=== PATIENT | female | born 1980 | race Caucasian/White ===

== ENCOUNTER 2017-10-13 05:42 | Emergency (ER) | payer SELFPAY ==
[~2017-10-13] VITALS: Ht 162.6 cm; Wt 97.7 kg
[~2017-10-13 05:42] MED LIST: ABILIFY; AMBIEN 10MG10 MG PO; AMBIEN 5MG TABLE5 MG; AMBIEN 5MG TABLE5 MG PO; ANTABUSE500 MG PO; ATARAX25 MG PO; ATIVAN 1MG T1 MG/TAB PO; B-1100 MG PO; BIRTH CONTROL PILLS; CARAFATE 1GM1 G PO; DESYREL 100MG100 MG PO; DESYREL 50MG50 MG; FLEXERIL10 MG PO; FLEXERIL5 MG PO; FOLIC ACID 11 MG/TA1 PO; INDERAL 10MG10 MG PO; K-TAB20 PO; KLONOPIN 0.5MG0.5 MG PO; KLONOPIN 1MG1 MG PO; KLONOPIN WAFER0.5 MG PO; LAMICTAL 100MG100 MG PO; LAMICTAL 25MG T25 MG; MAALOX PLUS 3030 ML PO; MULTI VITAMINS1 TAB PO; NO HOME MEDICATIONS; NORCO 325 MG-101 TAB PO; NORCO 325 MG-51 TAB PO; NORVASC 5MG5 MG/TAB PO; PAXIL 20MG20 MG PO; PERCOCET 325 MG1 TA2 PO; PHENERGAN 25 TA25 MG PO; PREDNISONE10 MG PO; PRIL40 PO; PRILOSEC 20MG20 MG PO; PROZAC 20MG20 MG PO; PROZAC40 MG PO; PROZAC60 MG PO; THERA1 TA1 PO; THIAMINE 1100 MG/TAB PO; VALIUM 10MG10 MG/TAB PO; VALIUM 2MG T2 MG/TAB PO; VALIUM 5MG T5 MG/TAB PO; ZOFRAN 4MG T4 MG/TAB PO; ZOFRAN ODT8 MG PO
[2017-10-13 05:46] VITALS: TEMP 98.4
[2017-10-13] MEDS ORDERED: PRIL40 PO (05:50)
[2017-10-13 06:28] LABS: BASO % 0.2 % (0.0-2.0); EOS # 0.2 (0.0-0.7); EOS % 1.9 % (0-4.0); GRAN # 9.1 (1.4-6.5); GRAN % 71.5 % (42.2-75.2); HEMATOCRIT 38.5 % (37.0-47.0); HEMOGLOBIN 13.5 g/dl (12.5-16.0); LYMPH # 2.5 (1.2-3.4); LYMPH % 19.8 % (20.0-51.0); MEAN CELL VOLUME 83 fl (80.0-100.0); MEAN CORPUSCULAR HEMOGLOBIN 29 pg (27.0-31.0); MEAN CORPUSCULAR HGB CONC 35 g/dl (33.0-37.0); MEAN PLATELET VOLUME 10.6 fl (7.4-10.4); MONO # 0.8 (0.1-0.6); MONO % 6.3 % (1.7-9.3); PLATELET COUNT 223 K/mm3 (130-400); RED BLOOD COUNT 4.65 M/mm3 (4.10-5.30); REDCELL DISTRIBUTION WIDTH-CV 12.8 % (11.5-14.5)
[2017-10-13 06:37] LABS: ALBUMIN 3.8 gm/dL (3.5-5.0); BILIRUBIN,TOTAL 0.4 mg/dL (0.0-1.0); CALCIUM 9.2 mg/dL (8.4-10.2); CREATININE, serum 0.63 mg/dL (0.52-1.25); POTASSIUM 3.6 mmol/L (3.4-5.0); TOTAL PROTEIN 6.9 gm/dL (6.4-8.2)
[2017-10-13 07:30] LABS: COLLECTION METHOD CLEAN CATCH
[2017-10-13 07:38] LABS: MUCOUS Present /lpf; PH 7 (5-8); URINE APPEARANCE Clear; URINE BACTERIA None Seen /hpf; URINE BILIRUBIN Negative (NEGATIVE); URINE BLOOD Negative (NEGATIVE); URINE COLOR Yellow; URINE GLUCOSE Negative (NEGATIVE); URINE KETONE Negative (NEGATIVE); URINE LEUKOCYTE ESTERASE Negative (NEGATIVE); URINE NITRATE Negative (NEGATIVE); URINE PROTEIN(semi-quant) 1+ (NEGATIVE); URINE UROBILINOGEN Negative (NEGATIVE)
[2017-10-13] MEDS ORDERED: PHENERGAN 25 TA25 MG PO (08:25)
[2017-10-13] MEDS ORDERED: NORCO 325 MG-51 TAB PO (08:25)
[2017-10-13 08:47] VITALS: BP 120/89; PULSE 77
== END 2017-10-13 09:00 | disposition home or self-care (01) ==
LOC: COL.ER 05:42
PROVIDERS: Emergency Medicine
DX: R10.12 Left upper quadrant pain (principal); K21.9 Gastro-esophageal reflux disease without esophagitis; F43.10 Post-traumatic stress disorder, unspecified; F17.210 Nicotine dependence, cigarettes, uncomplicated; Z87.19 Personal history of other diseases of the digestive system; Z90.49 Acquired absence of other specified parts of digestive tract
CPT/HCPCS: J1170; J2765; J3010; J7030; Q9967

== ENCOUNTER 2017-11-10 15:23 | Emergency (ER) | payer SELFPAY ==
[~2017-11-10] VITALS: Ht 162.6 cm; Wt 95.5 kg
[2017-11-10 15:26] VITALS: TEMP 98.8
[2017-11-10 15:38] LABS: COLLECTION METHOD CLEAN CATCH
[2017-11-10 15:47] LABS: MUCOUS Present /lpf; PH 5 (5-8); URINE APPEARANCE Hazy; URINE BACTERIA Rare /hpf; URINE BILIRUBIN Negative (NEGATIVE); URINE BLOOD Negative (NEGATIVE); URINE COLOR Yellow; URINE GLUCOSE Negative (NEGATIVE); URINE KETONE Negative (NEGATIVE); URINE LEUKOCYTE ESTERASE Trace (NEGATIVE); URINE NITRATE Negative (NEGATIVE); URINE PROTEIN(semi-quant) Negative (NEGATIVE); URINE RBC 0-2 /hpf; URINE UROBILINOGEN Negative (NEGATIVE)
[2017-11-10 16:15] LABS: BASO # 0.1 (0.0-0.2); BASO % 0.6 % (0.0-2.0); EOS # 0.2 (0.0-0.7); EOS % 2.6 % (0-4.0); HEMATOCRIT 37.5 % (37.0-47.0); HEMOGLOBIN 12.9 g/dl (12.5-16.0); LYMPH % 45.1 % (20.0-51.0); MEAN CELL VOLUME 83 fl (80.0-100.0); MEAN CORPUSCULAR HEMOGLOBIN 29 pg (27.0-31.0); MEAN CORPUSCULAR HGB CONC 34 g/dl (33.0-37.0); MEAN PLATELET VOLUME 10.3 fl (7.4-10.4); MONO # 0.6 (0.1-0.6); MONO % 6.5 % (1.7-9.3); PLATELET COUNT 241 K/mm3 (130-400); REDCELL DISTRIBUTION WIDTH-CV 13.1 % (11.5-14.5)
[2017-11-10 16:28] LABS: ALANINE AMINOTRANSFERASE 25 U/L (9-52); ALBUMIN 4.3 gm/dL (3.5-5.0); ALKALINE PHOSPHATASE 62 U/L (50-136); ANION GAP 10 mmol/L (7-16); AST,SGOT 19 U/L (15-37); BILIRUBIN,TOTAL 0.3 mg/dL (0.0-1.0); BLOOD UREA NITROGEN 18 mg/dL (7-17); CALCIUM 9.1 mg/dL (8.4-10.2); CARBON DIOXIDE 23 mmol/L (22-30); CHLORIDE 105 mmol/L (98-107); CREATININE, serum 0.66 mg/dL (0.52-1.25); GLUCOSE 86 mg/dL (74-106); LIPASE 30 U/L (23-300); POTASSIUM 3.6 mmol/L (3.4-5.0); SODIUM 138 mmol/L (137-145); TOTAL PROTEIN 7.2 gm/dL (6.4-8.2)
[2017-11-10 16:33] LABS: C-REACTIVE PROTEIN < 0.5 mg/dL (0.0-0.9)
[2017-11-10] MEDS ORDERED: ZOFRAN 4MG T4 MG/TAB PO (16:55)
[2017-11-10] MEDS ORDERED: NORCO 325 MG-51 TAB PO (16:55)
[2017-11-10] MEDS ORDERED: CARAFATE 1GM1 G PO (16:55)
[2017-11-10 17:23] VITALS: BP 136/70; PULSE 89
== END 2017-11-10 17:20 | disposition home or self-care (01) ==
LOC: COL.ER 15:23
PROVIDERS: Emergency Medicine
DX: R19.7 Diarrhea, unspecified (principal); R10.12 Left upper quadrant pain; F10.20 Alcohol dependence, uncomplicated; F17.210 Nicotine dependence, cigarettes, uncomplicated; Z98.890 Other specified postprocedural states; Z90.49 Acquired absence of other specified parts of digestive tract
CPT/HCPCS: J2270; J2405; J7030

== ENCOUNTER 2018-10-07 07:42 | Inpatient (IN) | payer BC ==
[~2018-10-07] VITALS: Ht 162.6 cm; Wt 98.7 kg
[2018-10-07] MEDS ORDERED: EFFEXOR 3737.5 MG/TA PO (07:52)
[2018-10-07 08:15] LABS: COLLECTION METHOD CLEAN CATCH
[2018-10-07 08:18] LABS: BASO % 0.3 % (0.0-2.0); EOS # 0.1 (0.0-0.7); EOS % 0.9 % (0-4.0); GRAN # 8.9 (1.4-6.5); GRAN % 76.5 % (42.2-75.2); LYMPH # 1.8 (1.2-3.4); LYMPH % 15.3 % (20.0-51.0); MEAN CELL VOLUME 75 fl (80.0-100.0); MEAN CORPUSCULAR HGB CONC 32 g/dl (33.0-37.0); MEAN PLATELET VOLUME 9.1 fl (7.4-10.4); MONO # 0.8 (0.1-0.6); MONO % 6.7 % (1.7-9.3); PLATELET COUNT 287 K/mm3 (130-400); RED BLOOD COUNT 4.18 M/mm3 (4.10-5.30); REDCELL DISTRIBUTION WIDTH-CV 16.6 % (11.5-14.5)
[2018-10-07 08:22] LABS: MUCOUS Present /lpf; PH 9 (5-8); URINE APPEARANCE Hazy; URINE BACTERIA None Seen /hpf; URINE BILIRUBIN Negative (NEGATIVE); URINE BLOOD Negative (NEGATIVE); URINE COLOR Yellow; URINE GLUCOSE Negative (NEGATIVE); URINE KETONE Negative (NEGATIVE); URINE LEUKOCYTE ESTERASE Negative (NEGATIVE); URINE NITRATE Negative (NEGATIVE); URINE PROTEIN(semi-quant) Negative (NEGATIVE); URINE RBC 0-2 /hpf; URINE UROBILINOGEN Negative (NEGATIVE)
[2018-10-07 08:26] LABS: HEMATOCRIT 31.4 % (37.0-47.0); HEMOGLOBIN 9.9 g/dl (12.5-16.0); MEAN CORPUSCULAR HEMOGLOBIN 24 pg (27.0-31.0)
[2018-10-07 08:34] LABS: ALANINE AMINOTRANSFERASE 20 U/L (9-52); ALBUMIN 3.8 gm/dL (3.5-5.0); ALKALINE PHOSPHATASE 72 U/L (50-136); ANION GAP 8 mmol/L (7-16); AST,SGOT 22 U/L (15-37); BILIRUBIN,TOTAL 0.2 mg/dL (0.0-1.0); BLOOD UREA NITROGEN 25 mg/dL (7-17); CALCIUM 8.7 mg/dL (8.4-10.2); CARBON DIOXIDE 27 mmol/L (22-30); CHLORIDE 106 mmol/L (98-107); CREATININE, serum 0.92 (0.52-1.25); GLUCOSE 120 mg/dL (74-106); POTASSIUM 3.8 mmol/L (3.4-5.0); SODIUM 141 mmol/L (137-145); TOTAL PROTEIN 6.5 gm/dL (6.4-8.2)
[2018-10-07 08:38] LABS: C-REACTIVE PROTEIN < 0.5 mg/dL (0.0-0.9)
[2018-10-07 09:58] LABS: LIPASE 28247 U/L (23-300)
--- NOTE | 2018-10-07 12:03 | NUR ---
PATIENT ARRIVED TO ROOM 349 VIA WHEELCHAIR BY ED STAFF. PATIENT SETTELED INTO ROOM.
[2018-10-07 12:14] VITALS: BP 147/93; PULSE 66; TEMP 98.2
[2018-10-07] MEDS ORDERED: PRIL40 PO (12:44)
--- NOTE | 2018-10-07 12:55 | NUR ---
PATIENT ADMISSION ASSESSMENT AND MED REC COMPLETE. PATIENT GIVEN PRN DOSE OF IV DIALUIDID FOR PAIN RATED AN 8/10 ON A 0-10 SCALE. IV FLUIDS INFUSING TO LEFT HAND IV VIA PUMP. CALL LIGHT WITHIN REACH. FAMILY PRESENT AT THE BEDSIDE. PATIENT DENIES ANY OTHER NEEDS AT THIS TIME.
[2018-10-07 15:20] LABS: CHOLESTEROL RISK RATIO 5.5
[2018-10-07 15:52] VITALS: BP 153/87; PULSE 72; TEMP 98.2
--- NOTE | 2018-10-07 16:07 | NUR ---
JELLY met with the patient to discuss a discharge plan. The pt lives in [place] with her boyfriend and kids. The pt does not use DME and reports independence with ADLs. The pt's PCP is Dr. Butts and the pt receives her medications from [facility]. The pt reports no difficulties obtaining her medications. The pt does not have advanced directives in the EMR and was not interested in a DPOA-HC form at this time. The pt plans to return home upon discharge. There are no additional needs at this time.
--- NOTE | 2018-10-07 16:10 | NUR ---
PATIENT GIVEN PRN DOSE OF IV DILAUDID FOR PAIN RATED A 9/10 ON A 0-10 SCALE. PATIENT TOLERATING ICE CHIPS WITHOUT N/V. WILL CONTINUE TO MONITOR.
--- NOTE | 2018-10-07 19:00 | NUR ---
PATIENT GIVEN PRN IV ZOFRAN FOR NAUSEA AND PRN DOSE OF IV DILAUDID FOR PAIN AFTER HER SHOWER. PATIENT RE-CONNECTED TO IV FLUIDS. REPORT GIVEN TO KARINA LEIVA.
[2018-10-07 20:00] VITALS: BP 144/80; PULSE 69; TEMP 98.1
--- NOTE | 2018-10-07 20:30 | NUR ---
Pt. sitting up in bed at this time. Pt. is A&OX3, assessment complete. IV to rt. hand patent, IV fluids infusing per orders. Pt. denies pain or other needs at this time. Call light within reach.
[2018-10-08 00:30] VITALS: BP 113/75; PULSE 69; TEMP 97.8
[2018-10-08 03:32] VITALS: BP 146/87; PULSE 76; TEMP 97.3
--- NOTE | 2018-10-08 08:00 | NUR ---
PATIENT IS A&O. VSS. BOWEL SOUNDS ACTIVE ALL FOUR QUADRANTS. PATIENT'S DIET ADVANCED TO CLEAR LIQUIDS FOR BREAKFAST. PATIENT TOLERATED WELL WITHOUT N/V. SHALLOW BREATHING NOTED. PATIENT DNEIES SOB OR A PODUCTIVE COUGH. POSITIVE PEDAL PULSES EQUAL BILATERALLY. LEFT EAR REDDENED AND WARM TO THE TOUCH. IV FLUIDS INFUSING TO RIGHT HAND IV VIA PUMP. CALL LIGHT WITHIN REACH. PATIENT DENIES ANY OTHER NEEDS AT THIS TIME.
[2018-10-08 08:15] LABS: BASO % 0.2 % (0.0-2.0); EOS # 0.3 (0.0-0.7); EOS % 2.6 % (0-4.0); GRAN # 6.8 (1.4-6.5); GRAN % 69.7 % (42.2-75.2); LYMPH % 20.1 % (20.0-51.0); MEAN CELL VOLUME 76 fl (80.0-100.0); MEAN CORPUSCULAR HGB CONC 31 g/dl (33.0-37.0); MEAN PLATELET VOLUME 9.7 fl (7.4-10.4); MONO # 0.7 (0.1-0.6); MONO % 7.2 % (1.7-9.3); PLATELET COUNT 262 K/mm3 (130-400); RED BLOOD COUNT 4.21 M/mm3 (4.10-5.30); REDCELL DISTRIBUTION WIDTH-CV 16.7 % (11.5-14.5)
[2018-10-08 08:16] VITALS: BP 139/77; PULSE 78; TEMP 98.8
[2018-10-08 08:16] LABS: HEMATOCRIT 31.8 % (37.0-47.0); HEMOGLOBIN 9.9 g/dl (12.5-16.0); MEAN CORPUSCULAR HEMOGLOBIN 24 pg (27.0-31.0)
[2018-10-08 08:24] LABS: CALCIUM 8.3 mg/dL (8.4-10.2); CREATININE, serum 0.6 (0.52-1.25); POTASSIUM 3.4 mmol/L (3.4-5.0)
[2018-10-08 09:37] LABS: IRON,SERUM 31 ug/dL (35-150)
[2018-10-08 09:46] LABS: TOTAL IRON BINDING CAPACITY 382 ug/dL (265-497)
--- NOTE | 2018-10-08 09:57 | NUR ---
PATIENT RATING HER PAIN AN 8/10 ON A 0-10 SCALE. PATIENT DESCRIBES THE PAIN STABBING IN THE ABDOMEN THAT WRAPS AROUND TO THE BACK. PATIENT GIVEN 1 TABLET OF PRN NORCO. WILL CONTINUE TO MONITOR.
[2018-10-08 10:13] LABS: FERRITIN 11 ng/mL (6-137)
--- NOTE | 2018-10-08 10:39 | NUR ---
Initial visit; Patient thanked Chaplalin for looking in on her and offering God's blessings.
[2018-10-08 12:57] VITALS: BP 144/89; PULSE 77; TEMP 98.5
--- NOTE | 2018-10-08 16:08 | NUR ---
PATIENT TOLERATING ORAL PAIN MEDICATION AND BLAND DIET. NO OTHER NEEDS AT THIS TIME.
[2018-10-08] MEDS ORDERED: FERROUS GL325 MG/TAB PO (16:10)
[2018-10-08] MEDS ORDERED: NORCO 325 MG-51 TAB PO (16:11)
[2018-10-08] MEDS ORDERED: LIPITOR20 MG PO (16:11)
[2018-10-08 17:34] VITALS: BP 138/95; PULSE 82; TEMP 98.5
--- NOTE | 2018-10-08 18:00 | NUR ---
RIGHT HAND IV DISCONTINUED PER PENDING DISCHARGE. TIP INTACT. PATIENT TOLERATED WELL. DISCHARGE INSTRUCTIONS REVIEWED WITH PATIENT AND FAMILY. ALL QUESTIONS ANSWERED. PATIENT PERSONAL BELONGINGS GATHERED. PATIENT AMBULATED TO PERSONAL VEHICLE WITH SURGICAL STAFF. PATIENT DISCHARGED.
== END 2018-10-08 18:00 | disposition home or self-care (01) | DRG 440 ==
LOC: COL.ER 07:42 → SURG 10:21
PROVIDERS: Emergency Medicine; Physician Assistant; ADMIT Family Medicine
DX: K85.90 Acute pancreatitis without necrosis or infection, unspecified (principal); F32.9 Major depressive disorder, single episode, unspecified; K21.9 Gastro-esophageal reflux disease without esophagitis; E78.5 Hyperlipidemia, unspecified; D50.9 Iron deficiency anemia, unspecified; F10.11 Alcohol abuse, in remission
CPT/HCPCS: 99222-AI; 99232-AI; 99239; C9113; J1170; J1200; J1650; J2405; J2550; J7030; Q9967

== ENCOUNTER 2019-06-20 20:00 | Emergency (ER) | payer BC ==
[~2019-06-20] VITALS: Ht 162.6 cm; Wt 100.0 kg
[~2019-06-20 20:00] MED LIST changes: +EFFEXOR 3737.5 MG/TA PO; +FERROUS GL325 MG/TAB PO; +LIPITOR20 MG PO
[2019-06-20 20:14] VITALS: TEMP 98.5
[2019-06-20 20:49] LABS: COLLECTION METHOD CLEAN CATCH
[2019-06-20 20:53] LABS: BASO # 0.1 (0.0-0.2); BASO % 0.7 % (0.0-2.0); EOS # 0.2 (0.0-0.7); EOS % 1.6 % (0-4.0); GRAN # 4.9 (1.4-6.5); GRAN % 50.4 % (42.2-75.2); LYMPH # 3.9 (1.2-3.4); LYMPH % 39.2 % (20.0-51.0); MEAN CELL VOLUME 71 fl (80.0-100.0); MEAN CORPUSCULAR HGB CONC 30 g/dl (33.0-37.0); MEAN PLATELET VOLUME 9.2 fl (7.4-10.4); MONO # 0.8 (0.1-0.6); MONO % 7.9 % (1.7-9.3); PLATELET COUNT 300 K/mm3 (130-400); RED BLOOD COUNT 4.21 M/mm3 (4.10-5.30); REDCELL DISTRIBUTION WIDTH-CV 18.6 % (11.5-14.5)
[2019-06-20 20:54] LABS: HEMATOCRIT 29.7 % (37.0-47.0); HEMOGLOBIN 8.9 g/dl (12.5-16.0); MEAN CORPUSCULAR HEMOGLOBIN 21 pg (27.0-31.0)
[2019-06-20 20:56] LABS: PH 6 (5-8); SQUAMOUS EPITHELIAL None Seen /hpf; URINE APPEARANCE Clear; URINE BACTERIA Rare /hpf; URINE BILIRUBIN Negative (NEGATIVE); URINE BLOOD Negative (NEGATIVE); URINE COLOR Straw; URINE GLUCOSE 1+ (NEGATIVE); URINE KETONE Negative (NEGATIVE); URINE LEUKOCYTE ESTERASE Negative (NEGATIVE); URINE NITRATE Negative (NEGATIVE); URINE PROTEIN(semi-quant) Negative (NEGATIVE); URINE RBC 0-2 /hpf; URINE UROBILINOGEN Negative (NEGATIVE)
[2019-06-20 21:09] LABS: BILIRUBIN,TOTAL 0.1 mg/dL (0.0-1.0); CALCIUM 8.2 mg/dL (8.4-10.2); CREATININE, serum 0.54 (0.52-1.25); POTASSIUM 3.6 mmol/L (3.4-5.0); TOTAL PROTEIN 6.8 gm/dL (6.4-8.2)
[2019-06-20 23:16] VITALS: BP 155/71; PULSE 73
== END 2019-06-20 23:16 | disposition home or self-care (01) ==
LOC: COL.ER 20:00
PROVIDERS: Emergency Medicine
DX: R10.12 Left upper quadrant pain (principal); Z90.89 Acquired absence of other organs
CPT/HCPCS: J0780; J1170; J7030

== ENCOUNTER 2021-01-08 15:56 | Emergency (ER) | payer BC ==
[~2021-01-08] VITALS: Ht 162.6 cm; Wt 102.3 kg
[2021-01-08 16:49] LABS: BASO # 0.1 (0.0-0.2); EOS # 0.2 (0.0-0.7); EOS % 2.3 % (0-4.0); GRAN # 4.6 (1.4-6.5); GRAN % 58.3 % (42.2-75.2); LYMPH # 2.6 (1.2-3.4); LYMPH % 32.3 % (20.0-51.0); MEAN CELL VOLUME 71 fl (80.0-100.0); MEAN CORPUSCULAR HGB CONC 29 g/dl (33.0-37.0); MONO # 0.5 (0.1-0.6); MONO % 5.8 % (1.7-9.3); PLATELET COUNT 342 K/mm3 (130-400); RED BLOOD COUNT 4.22 M/mm3 (4.10-5.30)
[2021-01-08 16:50] LABS: HEMATOCRIT 29.9 % (37.0-47.0); HEMOGLOBIN 8.8 g/dl (12.5-16.0); MEAN CORPUSCULAR HEMOGLOBIN 21 pg (27.0-31.0)
[2021-01-08 17:09] LABS: ALANINE AMINOTRANSFERASE 12 U/L (4-34); ALBUMIN 4.4 gm/dL (3.5-5.0); ALKALINE PHOSPHATASE 62 U/L (50-136); ANION GAP 7 mmol/L (7-16); AST,SGOT 20 U/L (15-37); BILIRUBIN,TOTAL 0.2 mg/dL (0.0-1.0); BLOOD UREA NITROGEN 11 mg/dL (7-17); CALCIUM 8.6 mg/dL (8.4-10.2); CARBON DIOXIDE 25 mmol/L (22-30); CHLORIDE 108 mmol/L (98-107); CREATININE, serum 0.69 (0.52-1.25); GLUCOSE 102 mg/dL (74-106); POTASSIUM 3.7 mmol/L (3.4-5.0); SODIUM 140 mmol/L (137-145); TOTAL PROTEIN 7.2 gm/dL (6.4-8.2)
[2021-01-08 17:21] LABS: TROPONIN-I < 0.012 ng/mL (0.000-0.035)
[2021-01-08] MEDS ORDERED: ZESTRIL 20MG TA20 MG PO (17:43)
[2021-01-08 17:54] VITALS: BP 149/90; PULSE 79
== END 2021-01-08 17:57 | disposition home or self-care (01) ==
LOC: COL.ER 15:56
PROVIDERS: Nurse Practitioner Primary Care
DX: I16.0 Hypertensive urgency (principal); E66.9 Obesity, unspecified; F17.210 Nicotine dependence, cigarettes, uncomplicated

== ENCOUNTER → 2021-06-28 | Outpatient (CLI) | payer BC ==
[~2021-06-28] MED LIST changes: +ZESTRIL 20MG TA20 MG PO
== END ==
LOC: COL.VAS 10:15
DX: M79.604 Pain in right leg (principal)

== ENCOUNTER → 2021-07-26 | Outpatient (CLI) | payer BC | LOC: COL.RAD 07:19 | DX: E27.9 Disorder of adrenal gland, unspecified (principal); Z90.49 Acquired absence of other specified parts of digestive tract; Z90.710 Acquired absence of both cervix and uterus | CPT/HCPCS: Q9967 ==

== ENCOUNTER 2021-09-14 12:29 | Emergency (ER) | payer BC ==
[~2021-09-14] VITALS: Ht 162.6 cm; Wt 104.5 kg
[2021-09-14 13:04] VITALS: TEMP 98.1
[2021-09-14 13:20] LABS: COLLECTION METHOD CLEAN CATCH
[2021-09-14 13:28] LABS: MUCOUS Present (NOT PRESENT); PH 6 (5-8); URINE APPEARANCE Clear (CLEAR/HAZY); URINE BACTERIA Rare /hpf (NONE SEEN); URINE BILIRUBIN Negative (NEGATIVE); URINE BLOOD 1+ (NEGATIVE); URINE COLOR Yellow (YELLOW); URINE GLUCOSE Negative (NEGATIVE); URINE KETONE Negative (NEGATIVE); URINE LEUKOCYTE ESTERASE Negative (NEGATIVE); URINE NITRATE Negative (NEGATIVE); URINE PROTEIN(semi-quant) Negative (NEGATIVE); URINE RBC 0-2 /hpf (0-2); URINE UROBILINOGEN Negative (NEGATIVE)
[2021-09-14 13:31] LABS: BASO % 0.3 % (0.0-2.0); EOS # 0.1 K/mm3 (0.0-0.7); EOS % 0.7 % (0.0-4.0); GRAN # 9.2 K/mm3 (1.4-6.5); GRAN % 73.1 % (42.2-75.2); HEMATOCRIT 37.6 % (37.0-47.0); HEMOGLOBIN 12.1 g/dl (12.5-16.0); LYMPH # 2.4 K/mm3 (1.2-3.4); LYMPH % 19.1 % (20.0-51.0); MEAN CELL VOLUME 76 fl (80.0-100.0); MEAN CORPUSCULAR HEMOGLOBIN 25 pg (27-31); MEAN CORPUSCULAR HGB CONC 32 g/dl (33.0-37.0); MEAN PLATELET VOLUME 9.5 fl (7.4-10.4); MONO # 0.8 K/mm3 (0.1-0.6); MONO % 6.6 % (1.7-9.3); PLATELET COUNT 287 K/mm3 (130-400); RED BLOOD COUNT 4.93 M/mm3 (4.10-5.30); REDCELL DISTRIBUTION WIDTH-CV 17.4 % (11.5-14.5)
[2021-09-14 13:48] LABS: ALBUMIN 4.2 gm/dL (3.5-5.0); BILIRUBIN,TOTAL 0.7 mg/dL (0.2-1.2); CALCIUM 9.2 mg/dL (8.4-10.2); CREATININE, serum 0.83 mg/dL (0.57-1.11); POTASSIUM 3.7 mmol/L (3.5-4.5); TOTAL PROTEIN 7.3 gm/dL (6.2-8.1)
[2021-09-14] MEDS ORDERED: NORCO 325 MG-51 TAB PO (14:50)
[2021-09-14] MEDS ORDERED: ZOFRAN ODT4 MG PO (14:50)
[2021-09-14 15:00] VITALS: BP 128/82; PULSE 79
== END 2021-09-14 15:00 | disposition home or self-care (01) ==
LOC: COL.ER 12:29
PROVIDERS: Emergency Medicine
DX: K85.80 Other acute pancreatitis without necrosis or infection (principal); F17.210 Nicotine dependence, cigarettes, uncomplicated; Z90.49 Acquired absence of other specified parts of digestive tract; Z88.5 Allergy status to narcotic agent
CPT/HCPCS: J1170; J2405; J7030

== ENCOUNTER → 2021-10-29 | Outpatient (CLI) | payer BC ==
[~2021-10-29] MED LIST changes: +ZOFRAN ODT4 MG PO
== END ==
LOC: MHCPAIN 14:18
DX: R10.32 Left lower quadrant pain (principal); Z90.710 Acquired absence of both cervix and uterus; F17.210 Nicotine dependence, cigarettes, uncomplicated; G89.29 Other chronic pain
CPT/HCPCS: G0463